=== PATIENT | male | born 1955 | race Caucasian/White ===

== ENCOUNTER 2022-06-16 08:31 | Emergency (ER) | payer OTHER, SELFPAY ==
--- NOTE | 2022-06-16 08:33 | ED.SKABFB ---
HPI - Skin/Abscess/Foreign Bdy General Chief complaint: Wound/Laceration Stated complaint: Insect Bite Time Seen by Provider: 06/16/22 08:32 Source: patient Mode of arrival: ambulatory Limitations: no limitations History of Present Illness HPI narrative: Mr. Pruett is a 67-year-old male patient presenting to the clinic today with complaints of a possible insect bite to his right lower leg. He reports he was bitten by possibly mosquito 3 days ago but he is unsure if it was a mosquito or spider. He reports that the area is very itchy and red. States initially it looked like a mosquito bite he scratched it and it scabbed over and then the scab fell off and now he has a small open area with surrounding redness. Denies any pain but reports a lot of itching. Related Data Home Medications Medication Instructions Recorded Confirmed atorvastatin 40 mg tablet 40 mg PO DAILY 10/14/19 06/16/22 diltiazem HCl 240 mg 240 mg PO DAILY 10/14/19 06/16/22 capsule,extended release 24 hr (Cartia XT) tamsulosin 0.4 mg capsule 0.4 mg PO DAILY 10/14/19 06/16/22 lisinopril 20 mg tablet 20 mg PO DAILY 06/16/22 06/16/22 Allergies Allergy/AdvReac Type Severity Reaction Status Date / Time No Known Allergies Allergy Verified 06/16/22 08:44 Review of Systems Review of Systems: Pertinent positives per HPI. Patient denies any fever, chills, headache, visual changes, dizziness, cough, runny nose, sore throat, shortness of breath, chest pain, palpitations, nausea, vomiting, diarrhea, constipation, abdominal pain, or any urinary issues. PMFSH Past Medical History Medical History A-fib Enlarged prostate Hypertension Comments At the time of my signature, I reviewed and agree with the nursing past medical, surgical, social, and family history. There is no relevant family history pertinent to the patient complaint. Exam Narrative: General: Well-developed, well nourished, in no apparent distress Head: Normocephalic, atraumatic. Cardio: Regular rate and rhythm, s1 and s2 normal, no murmur appreciated. Resp: Clear to auscultation bilaterally, no rhonchi, rales, wheezing or rubs. Integumentary: [place], warm, and dry, superficial open wound with localized redness and mild induration without discharge. Size of open wound is approximately the size of a quarter, nontender to palpation, reports severe itching Course Course Emergency Course: Portions of this record may have been created with voice recognition software. Level of Care: Express Care Visit Vital Signs Vital signs: Vital signs reviewed MDM - Skin/Abscess/Foreign Bdy MDM Narrative Medical decision making narrative: At the time of visit patient was resting comfortably on the exam table. I suspect the patient has a allergic reaction from a insect bite. Triamcinolone cream was prescribed and sent to his pharmacy. Supportive measures were discussed with the patient he voiced understanding of discharge instructions and agrees to treatment plan. Differential Diagnosis Differential diagnosis: Likely abscess of skin or subcutaneous tissue, cellulitis, insect bites and contact dermatitis Discharge Plan Discharge Clinical Impression: Insect bite Qualifiers: Encounter type: initial encounter Site of insect bite: lower leg Laterality: right Qualified Code(s): S80.861A - Insect bite (nonvenomous), right lower leg, initial encounter Patient Disposition: Home, Self-Care Condition: Stable Instructions: Antibiotic Form, Insect Bite or Sting (ED), General Allergic Reaction (ED) Additional Instructions: Apply triamcinolone cream as directed Avoid scratching. May take Benadryl 25 to 50 mg every 6 hours as needed for itching Avoid hot showers Follow-up with your PCP and 3 to 5 days if symptoms persist or sooner if they worsen Prescriptions: New triamcinolone acetonide 0.1 % cream 1 applic topical BID 7 Days
[2022-06-16 08:38] VITALS: BP 151/71; PULSE 55; RESP 20; TEMP 36.5; O2SAT 97
[2022-06-16 08:50] VITALS: BP 151/71; PULSE 55; RESP 20; TEMP 36.5; O2SAT 97
== END 2022-06-16 09:00 | disposition home or self-care (01) ==
PROVIDERS: Emergency Provider Nurse Practitioner Family; PCP Internal Medicine
DX: S80.861A Insect bite (nonvenomous), right lower leg, initial encounter (principal); W57.XXXA Bitten or stung by nonvenomous insect and other nonvenomous arthropods, initial encounter; I48.91 Unspecified atrial fibrillation; N40.0 Benign prostatic hyperplasia without lower urinary tract symptoms; I10 Essential (primary) hypertension
CPT/HCPCS: 99213; G0463